=== PATIENT | female | born 1985 | race Caucasian/White ===

== ENCOUNTER → 2023-10-03 08:15 | Outpatient (CLI) | payer OTHER, SELFPAY ==
--- NOTE | 2023-10-03 08:17 | DI.US.S_ITS ---
PROCEDURE: US OB >= 14 WEEKS FETUS INDICATIONS: anatomy scan OUTSIDE/PRIOR DATING DATA: Last menstrual period (LMP): Unknown. LMP-based estimated date of delivery (NATALIO): Not applicable. First dating scan (date and location): Not available. Estimated date of delivery (NATALIO) from first dating scan: Not applicable. The calculations are made using the working NATALIO of 02/26/24. TECHNIQUE: Real-time scanning was performed of the fetus, with image documentation and biometric measurements. Endovaginal scanning: Not performed COMPARISON: None. FINDINGS: General: A single living intrauterine gestation is present. Presentation: Transverse, head to maternal left. Placenta: Placental position is fundal , without previa. Amniotic fluid index: 11.6 cm, normal range is 5-24 cm. Single deepest vertical pocket is 3.4 cm. heart rate: 145 beats per minute. Maternal cervical canal: 5.0 cm long. Normal lower limit is 2.5 cm. biometrics: Biparietal diameter: 4.6 cm, 19 weeks six days Head circumference: 16.9 cm, 19 weeks four days Abdominal circumference: 14.2 cm, 19 weeks four days Femur length: 3.0 cm, 19 weeks one day Clinically estimated gestational age: 19 weeks one day Composite gestational age from present scan: 19 weeks four days Estimated weight and percentile: 288 g, 58th percentile Anatomic survey: Neuro: Ventricles are non-dilated at less than 10 mm. Cisterna magna is normal at 3-11 mm. Cerebellum is normal in size and morphology. Nuchal skin fold: Normal at less than 6 mm between 14-21 weeks gestational age. Face: Nose and lips, facial profile are normal. Spine: No evidence for spina bifida. Heart: 4-chambered heart is present, with normal ventricular outflow tracts. Diaphragm: Diaphragm is intact. Stomach: Left-sided stomach is present. Kidneys: No hydronephrosis. Normal is less than 5 mm in 2nd trimester, less than 7 mm in 3rd trimester. Cord: 3-vessel cord has orthotopic insertion. Bladder: Normal in size. Extremities: All 4 extremities identified. IMPRESSION: Single living intrauterine with estimated weight at the 58th percentile. Composite gestational age is three days ahead of the expected gestational age. Normal anatomy. Closed cervix and normal amniotic fluid volume. Fundal placenta. We strive to produce accurate, complete, and clear reports of imaging services. To assist us in improving patient care, this report was composed using standard report templates and voice recognition software. Therefore, it may contain abnormal punctuation, insertions and/or omissions. Occasional wrong-word or sound-alike substitutions may occur. Though we review the report and make efforts to correct it, we do recommend that the report be read carefully in proper context to recognize any text inaccuracies. Dictated by: Brigida Palacios M.D. on 10/03/2023 at 19:54 Approved by: Brigida Palacios M.D. on 10/03/2023 at 19:59
== END ==
PROVIDERS: PCP Family Medicine; Referring Provider Family Medicine; Visit Provider Family Medicine
DX: Z34.02 Encounter for supervision of normal first pregnancy, second trimester (principal); Z3A.19 19 weeks gestation of pregnancy
CPT/HCPCS: 76811

== ENCOUNTER → 2023-10-06 12:46 | Outpatient (CLI) | payer OTHER, SELFPAY ==
[2023-10-10 11:36] LABS: Varicella IgG Antibody 1005 index (Immune >165)
== END ==
PROVIDERS: PCP Family Medicine; Referring Provider Family Medicine; Visit Provider Family Medicine
DX: Z34.00 Encounter for supervision of normal first pregnancy, unspecified trimester (principal)
CPT/HCPCS: 36415; 82105; 86787

== ENCOUNTER → 2023-11-08 07:24 | Outpatient (CLI) | payer OTHER, SELFPAY ==
[2023-11-08 09:39] LABS: Hematocrit 33.8 % (36-46); Hemoglobin 11.5 g/dL (12.0-16.0)
[2023-11-08 10:06] LABS: GTT (PREG) 1 Hour PP 50gm Dose 115 mg/dL (76-139)
== END ==
PROVIDERS: PCP Family Medicine; Referring Provider Family Medicine; Visit Provider Family Medicine
DX: Z34.00 Encounter for supervision of normal first pregnancy, unspecified trimester (principal)
CPT/HCPCS: 36415; 82950; 85014; 85018

== ENCOUNTER 2023-12-27 12:11 | Observation (INO) | payer OTHER, SELFPAY ==
[2023-12-27] MEDS: BETAMETHASONE 30 MG/5 ML MDV 12 MG IM (12:47)
--- NOTE | 2023-12-27 12:51 | PM.OBHP.1 ---
OB HPI Date/Time Date of admission: 12/27/23 Date Patient Seen: 12/27/23 Time Patient Seen: 13:14 History of Present Condition Chief complaint: OBS : 1 Para: 0 Estimated Date of Delivery: 02/26/24 Estimated Gestational Age (weeks): 31w2d Narrative: Ruby Apodaca is a 38 year old presenting at 31w2d after she noted a trickling of fluid starting at 11:45 a.m. today. She has had continued leakage since then. Fluid is clear. She called in to clinic and was told to proceed to L and D for evaluation. On arrival she is grossly ruptured and Amnisure positive. She has not feeling any contractions. She is still feeling baby move. She has had continued leakage of clear fluid. No vaginal bleeding. has been complicated by AMA on ASA, anxiety/depression on sertraline 150 mg daily, Obesity with BMI 35 and 1st trimester hyperemesis which has since resolved Indications Other reason(s) for admission: ROM History of Present care: good care Dating criteria: based on 1st trimester US only (uncertain LMP) Ultrasounds: normal 1st trimester US Obstetrical complications: other (PPROM) Medical complications: none, gastrointestinal (Hyperemesis in 1st trimester ), psychiatric (anxiety/depression) and other (AMA on ASA ) Preadmission Labs Blood type: A (+) positive -: Antibody screen: negative, GBS status: unknown, HBsAG: negative, HIV: negative and RPR/VDLR: negative -: Chlamydia screen: not detected and Gonorrhea screen: not detected -: Rubella: immune and Varicella: immune HCT: 12.6 HCAB: negative Cell-free DNA: low risk male 1 hr GTT: 115 Evaluation Evaluation Baseline heart rate: 130 Variability: Moderate (11-25) monitor accelerations: Present Monitor Decelerations: Absent Contraction Frequency (minutes): 0 Category of Tracing: Reactive Status: Category l PFSH Medical History (Updated 08/21/23 @ 14:43 by Holly Rinaldi RN) Ovarian cyst (~2003) Kidney stones Surgical History (Updated 08/21/23 @ 14:10 by Holly Rinaldi RN) [place] teeth extracted History of lithotripsy (~2010) History of tonsillectomy and adenoidectomy (~2002) Status post bilateral breast reduction (~2007) Family History (Updated 08/21/23 @ 14:17 by Holly Rinaldi RN) Mother Alcoholism Status post bilateral breast reduction History of hysterectomy History of hip replacement H/O total ankle replacement Father Depression Congenital heart defect Heart valve replaced Grandmother History of hip replacement Grandfather Aortic aneurysm rupture Grandfather No problems noted. Uncle Stroke Aunt History of hip replacement Uncle H/O shoulder surgery Social History marital status: number of children: 0 household members: spouse lives independently: Yes caregiver/support person: No housing: house pets and animals: Yes (2 cats, managing litter boxes) education level: college (bachelor's degree) occupational status: employed ([employer], mostly works from home) current occupational exposures/hazards: No special nicole needs: No travel history: recent ([place]) seatbelt use: always helmet use: Yes water heater temp set < 120 deg: Yes working smoke detector in home: Yes fire extinguisher in home: No (will get one) carbon monox detector in home: Yes firearms in home: No do you feel safe at home: Yes Smoking Status: Never smoker second hand exposure: No alcohol intake: former (very occasionally when not ) substance use type: marijuana (not while /, likely not using again in future) during the past year weight has: other (fairly wide fluctuations) well-balanced diet: about half the time daily servings fruits/ve-4 caffeine: No (quit w/ ) Type(s) of exercise: walking frequency: daily Meds Home Medications and Allergies Home Medications Medication Instructions Recorded Confirmed Type aspirin 81 mg tablet,delayed 81 mg PO DAILY 08/21/23 12/19/23 History release (Adult Low Dose Aspirin) vitamin-ferrous sulfate tab PO 08/21/23 12/19/23 History 27 mg iron-folic acid 0.8 mg tablet sertraline 150 mg capsule 150 mg PO DAILY 08/21/23 12/19/23 History ondansetron 4 mg disintegrating 4 mg PO Q8H PRN nausea and 12/19/23 12/19/23 Rx tablet vomiting #30 tabs Allergies Allergy/AdvReac Type Severity Reaction Status Date / Time hydrocodone AdvReac Intermediate Vomiting Verified 12/19/23 09:03 Review of Systems Review of Systems Narrative: - contractions + LOF + movement OB Exam Vital signs Blood Pressure: 129/73 Pulse Rate: 70 Narrative Exam Narrative: Gen: NAD, well appearing CV: warm and well perfused pulm: breathing comfortably on RA Abd: gravid, non-tender Bedside US: transverse, head on maternal RUQ with spine up, buttocks in maternal Left side, HR visualized Assessment and Plan Assessment and Plan Assessment and Plan narrative: 38 year old presenting at 31w2d after she noted a trickling of fluid starting at 11:45 a.m. today. Amnisure positive. ## PPROM: ROM at 11:45 12/27/23 - presentation: transverse wtih head on maternal right - GBS collected, not yet resulted - Wet mount, GC/Chl, UA for infection work up - Azithromycin 1g once now, Ampicillin 2g IV q6 - BMZ 12mg now for lung maturity - Start Mag 4g bolus wtih 1g/per hr continuous for neuroprotection - Type and screen stat - CBC stat - Transferring pt to [facility] for higher level of care and NICU, accepting provider Dr. Jessy Lee Time-Based Coding :: 120 spent with patient and on the chart (including review of chart, obtaining history, exam, reviewing outside data, placing orders, documenting exam and treatment plan, and counseling patient) on 12/27/23.
[2023-12-27] MEDS: AMPICILLIN 2,000 MG in SODIUM CHLORIDE 0.9% 100 ML 200 MG IV (13:20)
[2023-12-27 13:42] LABS: Add Manual Diff / Slide Review NO; Basophils Absolute Auto 100 /uL (0-100); Basophils Percent Auto 0.5 % (0-2); Eosinophils Absolute Auto 100 /uL (0-450); Eosinophils Percent Auto 0.8 % (2-4); Hematocrit 36.9 % (36-46); Hemoglobin 12.6 g/dL (12.0-16.0); Lymphocytes Absolute Auto 1400 /uL (1100-4500); Lymphocytes Percent Auto 13.4 % (25-40); Mean Corpuscular HGB Conc 34.2 % (30-36); Mean Corpuscular Hemoglobin 31.1 PG (26-34); Mean Corpuscular Volume 90.9 fL (80-100); Monocytes Absolute Auto 900 /uL (0-900); Monocytes Percent Auto 8.6 % (3-14); Neutrophils Absolute Auto 8000 /uL (1500-7000); Neutrophils Percent Auto 76.7 % (50-75); Platelet Count 228 X10^3/uL (150-400); Red Blood Cell Count 4.06 X10^6/uL (4.0-5.2); Red Cell Distribution Width 12.6 % (11.6-14.8); White Blood Cell Count 10.4 X10^3/uL (4.5-11.0)
[2023-12-27] MEDS: MAGNESIUM SULFATE 4 GM/100 ML PIGGYBACK IV (13:56)
[2023-12-27] MEDS: LACTATED RINGERS 1,000 ML 100 ML IV (13:58)
[2023-12-27 14:00] VITALS: BP 129/73; PULSE 70
[2023-12-27] MEDS: MAGNESIUM SULFATE 20 GM/500 ML IV.SOLN IV (14:21)
[2023-12-27] MEDS: AZITHROMYCIN 250 MG TABLET 1000 MG PO (14:23)
[2023-12-27 15:28] LABS: Urine N gonorrhoeae NOT DETECTED
[2023-12-27 15:36] LABS: Urine Chlamydia NOT DETECTED
[2023-12-27 16:16] VITALS: BP 129/73; PULSE 70
== END 2023-12-27 16:05 | disposition home or self-care (01) ==
PROVIDERS: Family Medicine; Admitting Provider Student in an Organized Health Care Education/Training Program; PCP Family Medicine; Referring Provider Student in an Organized Health Care Education/Training Program; Visit Provider Student in an Organized Health Care Education/Training Program
DX: O42.913 Preterm premature rupture of membranes, unspecified as to length of time between rupture and onset of labor, third trimester (principal); O09.513 Supervision of elderly primigravida, third trimester; Z3A.31 31 weeks gestation of pregnancy
CPT/HCPCS: 36415; 59025; 59050; 76815; 84112; 85025; 86850; 86900; 86901; 87491; 87591; 96360; 96372; G0378; G0379; J0290; J0702; J3475

== ENCOUNTER 2024-12-25 12:34 | Day surgery (SDC) | payer OTHER, SELFPAY ==
[2024-12-10 13:20] VITALS: BMI 40.0
[2024-12-25 13:08] VITALS: BP 139/93; PULSE 73; RESP 16; TEMP 36.4; O2SAT 98
[2024-12-25] MEDS: LACTATED RINGERS 1,000 ML 42 ML IV (13:35)
--- NOTE | 2024-12-25 14:33 | P.OP.PRE_ITS ---
Pre-operative Note
--- NOTE | 2024-12-25 14:33 | PM.PREOP ---
Pre-operative Note COVID-19 COVID-19 status: Not tested Interval Note History & Physical reviewed/Exam performed by Physician: Yes Changes to H&P: No
--- NOTE | 2024-12-25 15:17 | SUR.OPER ---
Supine on padded OR bed, head on pillow, RIGHT arm secured on padded arm boards at <90 degrees abduction, left arm draped free in surgical field , legs uncrossed, safety belt at thigh, tape over blanket over lower legs. all positioning approved and directed by surgeon prior to start of procedure.
[2024-12-25] MEDS: LIDOCAINE 1% 20 ML INJ (15:29)
--- NOTE | 2024-12-25 16:04 | P.OP_ITS ---
Operative Date/Time/Diagnoses
--- NOTE | 2024-12-25 16:04 | PM.OP.1 ---
Operative Date/Time/Diagnoses Date of procedure: 12/25/24 Time of procedure: 15:30 Pre-op diagnosis: left wrist dequervains tenosynovitis and carpal tunnel syndrome Post-op diagnosis: same Procedure & Clinicians Procedure: Open carpal tunnel release and open first dorsal compartment release Same procedure(s) as scheduled: Yes Surgeon: Blanka Rojas Assisted?: Yes Bottom Scrubber: Barbara Lozano Anesthesia Type: General Operative Notes Findings: see below Applied: other (splint) Estimated Blood Loss (mL): 5 Procedure in detail: Preoperative diagnosis: 1) Carpal Tunnel Syndrome? 2) Dequervain?s tenosynovitis - Left wrist Procedure performed: Carpal Tunnel Release, Open and 1st dorsal compartment release Left wrist Postoperative diagnosis: Same Primary Surgeon: Blanka Rojas DO Assistnat: Babrara Lozano PA-C Anesthesia: LMA EBL: 1 ml Tourniquet: 32 minutes @ 200 mmHg Operative Findings: Thickened transverse carpal ligament was released.? No carpal tunnel masses. Tight 1st dorsal compartment Procedure in Detail: The patient was met in the pre-operative hold area. Consent was verified and operative extremity was signed. The patient then met with anesthesia and was brought back to the operating room. General LMA anesthesia was induced. The extremity was then prepped and draped in the usual sterile fashion. A timeout was performed per protocol. ?? A 2cm vertical incision was made directly over the radial styloid and 1st dorsal compartment.? Dissection was taken down through the subcutaneous soft tissues.? The 1st dorsal compartment was identified.? The 1st dorsal compartment was incised on the dorsal aspect and the underlying tendon was released.?? The APL had multiple slips.? I flexed and extended the thumb and ensured that the tendons did not sublux. ? A 3cm longitudinal incision was made in line with the ulnar border of the ring finger starting at May's Cardinal line distally. This was just radial to the hook of the hamate. Sharp dissection was brought down through the palmar fascia. Retractors were placed. The transverse carpal ligament was identified and a knife was used to incise it longitudinally until fat was seen distally in the palm. Tenotomy scissors were then used to create a pocket just superficial to the transverse carpal ligament and a freer was placed. The scissors were then placed deep to the ligament to bluntly separate the contents of the canal from ligament. I then pointed the tips of the scissors ulnarly and completed the release 2 cm into the antebrachial fascia. A freer elevator was used to confirm complete release both proximally and distally. The wounds were irrigated copiously and closed with 3-O and 4-0 nylon.? A sterile dressing was applied consisting of Xeroform plain gauze sterile Webril and a thumb spica splint.? The patient was taken the PACU in stable condition A PA was utilized for positioning, retraction and closure. Postoperative Plan: Same day surgery discharge Splint on until follow up 2 week follow up for splint & suture removal.? Home ROM. No manual labor 6 week follow up with planned release to full activity Complications: none Post-operative Condition: stable Disposition: PACU
[2024-12-25 16:09] VITALS: BP 135/72; PULSE 90; RESP 14; TEMP 36.1; O2SAT 99
[2024-12-25] MEDS: ACETAMINOPHEN IV 1,000 MG/100 ML VIAL 400 MG IV (16:12)
[2024-12-25] MEDS: ONDANSETRON 4 MG/2 ML INJ IV (16:15)
[2024-12-25 16:18] VITALS: BP 140/85; PULSE 90; RESP 14; TEMP 36.1; O2SAT 98
== END 2024-12-25 16:40 | disposition home or self-care (01) ==
PROVIDERS: PCP Family Medicine; Referring Provider Orthopaedic Surgery; Visit Provider Orthopaedic Surgery
PROC: (CPT 64721; principal; 2024-12-25 14:15)
DX: M65.4 Radial styloid tenosynovitis [de Quervain] (principal); G56.02 Carpal tunnel syndrome, left upper limb
CPT/HCPCS: 64721; 25000; 81025; J0131; J0689; J1100; J2250; J2405; J2704; J3010; J7120